=== PATIENT | female | born 1970 | race American Indian/Alaskan Native ===

== ENCOUNTER 2017-05-07 05:47 | Day surgery (SDC) | payer BC ==
[2017-05-05 16:08] LABS: Basophils % (Auto) 0.6 % (0.0-1.8); Eosinophils % (Auto) 2.7 % (0.0-4.3); Hematocrit 33.8 % (30.3-42.9); Hemoglobin 10.8 gm/dl (10.1-14.3); Mean Corpuscular HGB Conc 32 % (30-34); Mean Corpuscular Volume 74 fl (79-97); Platelet Count 293 K/mm3 (140-440); Red Blood Count 4.57 M/mm3 (3.65-5.03); Red Cell Distribution Width 17.1 % (13.2-15.2); White Blood Count 5.3 K/mm3 (4.5-11.0)
[2017-05-05 16:13] LABS: Mean Corpuscular Hemoglobin 24 pg (28-32)
[2017-05-05 16:26] LABS: Anion Gap 17 mmol/L; Blood Urea Nitrogen 15 mg/dL (7-17); Calcium 9.2 mg/dL (8.4-10.2); Carbon Dioxide 27 mmol/L (22-30); Chloride 100.9 mmol/L (98-107); Glucose 86 mg/dL (65-100); Potassium 3.9 mmol/L (3.6-5.0); Sodium 141 mmol/L (137-145)
--- NOTE | 2017-05-06 17:19 | Short Stay Summary ---
Short Stay Documentation Date of service: 05/07/17 Narrative H&P: 46y/o with dysfunctional uterine bleeding. Patient has attempted medical management without any significant improvement in symptoms. Pelvic ultrasound did not demonstrate any evidence of uterine fibroids. Patient has been reassessed/reevaluated/re-examined. H&P has been reviewed. No interval changes. - History Principal diagnosis: dysfunctional uterine bleeding Past Medical History: hypertension Past Surgical History: Other (tubal ligation; breast biopsy) Social history: - Allergies and Medications Current Medications: Allergies erythromycin base Allergy (Verified 05/05/17 14:25) Rash vancomycin Allergy (Verified 05/05/17 14:25) Rash Home Medications Medication Instructions Recorded Confirmed Last Taken Type Triamter/Hctz 37.5-25 mg 1 tab PO QDAY 05/05/17 05/05/17 Unknown History [Maxzide-25] - Physical exam General appearance: no acute distress Integumentary: no rash HEENT: Atraumatic Lungs: Clear to auscultation Breasts: deferred Heart: Regular rate Gastrointestinal: normal Female Genitourinary: deferred Rectal Exam: deferred - Brief post op/procedure progress note Date of procedure: 05/07/17 Pre-op diagnosis: dysfunctional uterine bleeding Post-op diagnosis: same Procedure: Hysteroscopy Dilatation and curettage Endometrial ablation via NovaSure Anesthesia: CLAUDIAA Surgeon: LUKASZ DINH Estimated blood loss: minimal Pathology: list (endometrial curettings) Specimen disposition: to lab - Hospital course Hospital course: The patient was admitted the day of surgery and underwent a hysteroscopy and endometrial ablation. Please see operative note for details of surgery. Postoperative course was uneventful. - Disposition Condition at discharge: Good Disposition: DC-[id number] TO HOME OR SELFCARE Short Stay Discharge Plan Activity: other (pelvic rest for 2 weeks) Diet: regular Additional Instructions: Patient may follow up with Dr. Webster in 2-4 weeks Prescriptions: Ibuprofen [Motrin] 800 mg PO Q8HR PRN #60 tablet PRN Reason: Pain oxyCODONE /ACETAMINOPHEN [Percocet 5/325] 1 tab PO Q6HR PRN #30 tablet PRN Reason: Pain
[~2017-05-07 05:47] MED LIST: NACL 0.9% 1000 ML 1,000 ML IV SCH; PEPCID IV NR; VERSED IV NR
[2017-05-07] MEDS ORDERED: VERSED IV NR (06:45)
[2017-05-07] MEDS ORDERED: PEPCID IV NR (06:45)
[2017-05-07] MEDS ORDERED: NACL BACTERIOSTATIC INFILTRATI ONE (06:49)
[2017-05-07] MEDS ORDERED: NEO SYNEPHRINE/NS Syringe(OR USE) IV ONE (07:00)
[2017-05-07] MEDS ORDERED: DILAUDID IV PRN (07:14)
[2017-05-07] MEDS ORDERED: ZOFRAN IV PRN (07:14)
[2017-05-07] MEDS ORDERED: SILVER NITRATE TP ONE (07:18)
--- NOTE | 2017-05-07 07:19 | Anesthesia Consultation ---
Anesthesia Consult and Med Hx Date of service: 05/07/17 - Airway Anesthetic Teeth Evaluation: Good ROM Head & Neck: Adequate Mental/Hyoid Distance: Adequate Mallampati Class: Class II Intubation Access Assessment: Probably Good - Pulmonary Exam CTA: Yes - Cardiac Exam Cardiac Exam: RRR - Pre-Operative Health Status ASA Pre-Surgery Classification: ASA3 Proposed Anesthetic Plan: General - Cardiovascular System Hx Hypertension: Yes - Central Nervous System Hx Psychiatric Problems: No - Hematic Hx Anemia: Yes - Other Systems Hx Alcohol Use: Yes (occas) Hx Cancer: No Hx Obesity: Yes (morbid obesity, BMI > 46)
--- NOTE | 2017-05-07 07:19 | Anesthesia Day of Surgery ---
Anesthesia Day of Surgery - Day of Surgery Patient Examined: Yes Patient H&P Reviewed: Yes Patient is NPO: Yes
[2017-05-07] MEDS ORDERED: DIPRIVAN 10 MG/ML IV ONE (07:28)
[2017-05-07] MEDS ORDERED: ROBINUL ONE (07:43)
[2017-05-07] MEDS ORDERED: XYLOCAINE MPF 2% ONE (07:43)
[2017-05-07] MEDS ORDERED: ZOFRAN ONE (07:43)
[2017-05-07] MEDS ORDERED: DECADRON ONE (07:43)
[2017-05-07] MEDS ORDERED: TORADOL ONE (07:45)
[2017-05-07] MEDS ORDERED: NACL 0.9% IR ONE ×2 (07:55→08:09)
[2017-05-07] MEDS ORDERED: PERCOCET 5/325 PO PRN (08:00)
--- NOTE | 2017-05-07 08:13 | Operative Report ---
Operative Report Operative Report: Date of procedure: 05/07/2017 Pre-operative diagnosis: Dysfunctional uterine bleeding Post-operative diagnosis: Same as above Procedure name(s): Hysteroscopy; dilatation and curettage; endometrial ablation via NovaSure Surgeon: Claudia Jarquin M.D. Pharmaceutical Physician: None Anesthesia: General endotracheal anesthesia Findings normal endometrial cavity Indication: 46-year-old 005 with a history of dysfunctional uterine bleeding. The patient has failed medical management and elected to undergo surgical management of her symptoms. Procedure The patient was taken to the operating room and given general tracheal anesthesia without complication. The patient was prepped and draped in a normal sterile fashion. A bivalve speculum was placed in the patient's vagina single-tooth tenaculums placed on the anterior lip of the cervix. The cervical os was dilated with graduated dilators. A uterine sound was inserted. The hysteroscope was then placed. Insufflation of the uterine cavity was performed with normal saline. Gen. survey of the uterine cavity revealed endometrial cavity. The hysteroscope was then removed. A sharp curettage of the endometrial surface was performed. The NovaSure device was then inserted. The endometrial length was 6.0 cm and the uterine width was 4.0 cm. The device was engaged and it passed the surveillance of the uterine cavity. The NovaSure device was then deployed with a energy of 132 that lasted for and 63 seconds. The NovaSure device was then removed. The hysteroscope was again reinserted. There was evidence of charring of the endometrial surface. The remainder of the vaginal instruments were then removed atraumatically. The patient was then successfully extubated taken to the recovery room. All sponge laps and needle counts were correct 2.
[2017-05-07 09:17] VITALS: BP 136/75
--- NOTE | 2017-05-07 10:22 | Post Anesthesia Evaluation ---
- Post Anesthesia Evaluation Patient Participated: Yes Airway Patent: Yes Stable Respiratory Function: Yes Nausea/Vomiting: No Temp > 96.8F: Yes Pain Manageable: Yes Adequeate Hydration: Yes Anesthesia Complications: No Block Receding Appropriately: Not Applicable Patient on Ventilator: No
== END 2017-05-07 09:55 | disposition home or self-care (01) ==
LOC: OR 05:47
PROVIDERS: ATTEND Obstetrics & Gynecology
DX: N93.8 Other specified abnormal uterine and vaginal bleeding (principal); I10 Essential (primary) hypertension; D64.9 Anemia, unspecified; E66.01 Morbid (severe) obesity due to excess calories; Z68.42 Body mass index [BMI] 45.0-49.9, adult; Z72.89 Other problems related to lifestyle; Z98.51 Tubal ligation status; Z98.890 Other specified postprocedural states; Z88.1 Allergy status to other antibiotic agents; Z79.899 Other long term (current) drug therapy
CPT/HCPCS: 36415; 58563; 80048; 84703; 85025; 88305; A4217; J1100; J1170; J1885; J2250; J2370; J2405; J2704; J7030

== ENCOUNTER 2019-04-02 15:17 | Outpatient (CLI) | payer BC ==
--- NOTE | 2019-04-05 13:30 | Mammography Report ---
BILATERAL DIGITAL SCREENING MAMMOGRAM WITH CAD INDICATION: Screening. History of a right benign surgical biopsy. COMPARISONS: 11/01/2009 right mammogram images from a needle localization. FINDINGS: Craniocaudal and mediolateral oblique views of both breasts were obtained using 2-D digital acquisition. In addition to standard review, the examination was analyzed for possible abnormalities using a computer-assisted detection device (iCAD). The breast tissue is heterogeneously dense, which may obscure small masses. New right upper outer calcifications require additional imaging. No mass or architectural distortion. The left breast is negative. IMPRESSION: Right calcifications requiring additional workup. Recommend recall for right ML and CC and ML magnifi cation views. BI-RADS CATEGORY 0: INCOMPLETE - NEED ADDITIONAL IMAGING EVALUATION AND/OR PRIOR MAMMOGRAMS FOR COMP ARISON Information is entered into a reminder system for a target due date for the next mammogram. The resul ts and recommendations were sent to the patient by mail. Signer Name: Elkin Gore MD Signed: 04/05/2019 1:25 PM Workstation Name: [id number]
== END 2019-04-02 15:18 | disposition home or self-care (01) ==
LOC: SPVWC 15:17
PROVIDERS: ATTEND Family Medicine
DX: Z12.31 Encounter for screening mammogram for malignant neoplasm of breast (principal); I10 Essential (primary) hypertension; E66.9 Obesity, unspecified; Z86.2 Personal history of diseases of the blood and blood-forming organs and certain disorders involving the immune mechanism
CPT/HCPCS: 77067

== ENCOUNTER 2020-11-13 09:13 | Outpatient (CLI) | payer BC ==
--- NOTE | 2020-11-13 10:05 | Mammography Report ---
DIGITAL SCREENING MAMMOGRAM, 11/13/2020 CLINICAL INFORMATION / INDICATION: Routine screening TECHNIQUE: Digital bilateral 2D mammography was obtained in the craniocaudal and mediolateral obliqu e projections. This examination was interpreted without the benefit of Computer-Aided Detection dominik sis. COMPARISON: 04/02/2019 FINDINGS: Breast Density: The breasts are heterogeneously dense, which may obscure small masses. No dominant mass, suspicious calcifications, or architectural distortion in the left breast. Grouped microcalcifications in the anterior right breast just below the level of the nipple have incr eased in number and prominence. Other calcifications appear stable. IMPRESSION: Increasing grouped microcalcifications of the right Follow up recommendation: Right magnification views BI-RADS Category 0: Incomplete. Needs additional imaging evaluation and/or prior mammograms for yifan vora. A "normal" or negative report should not discourage follow up or biopsy of a clinically significant f inding. A written summary of these findings will be mailed to the patient. The patient will be entered into a mammography reporting system which will generate a reminder letter for the patient's next appointmen t at the appropriate interval. The [employer] recommends yearly mammograms starting at age 40 and continuing as l matthieu as a woman is in good health. Breast MRI is recommended for women with an approximate 20-25% or greater lifetime risk of breast cancer, including women with a strong family history of breast or ova vincent cancer or who have been treated for Hodgkin's disease. Signer Name: Jesus Burleson MD Signed: 11/13/2020 10:00 AM Workstation Name: [id number]
== END 2020-11-13 09:14 | disposition home or self-care (01) ==
LOC: SPVWC 09:13
PROVIDERS: ATTEND Advanced Practice Midwife
DX: Z12.31 Encounter for screening mammogram for malignant neoplasm of breast (principal)
CPT/HCPCS: 77067